=== PATIENT | female | born 1940 | race Caucasian/White ===

== ENCOUNTER 2017-02-07 18:24 | Emergency (ER) | payer OTHER ==
[~2017-02-07] VITALS: Ht 162.6 cm; Wt 85.0 kg
[~2017-02-07 18:24] MED LIST: GABA600T PO; MAXZTAB PO; TRAM50TA PO
[2017-02-07 18:51] VITALS: BP 162/72; PULSE 68; RESP 16; TEMP 97.8; O2SAT 96
[2017-02-07] MEDS ORDERED: MAXZTAB PO (19:38)
[2017-02-07] MEDS ORDERED: GABA600T PO (19:38)
[2017-02-07] MEDS ORDERED: TRAM50TA PO (19:38)
--- NOTE | 2017-02-07 20:19 | PD ---
HPI . Fall Chief Complaint: Fall Time Seen by Provider: 19:21 Travel History International Travel<30 days: No Contact w/Intl Traveler<30days: No Traveled to known affect area: No History of Present Illness HPI 76-year-old female patient presents emergency for evaluation after she tripped at home and fell forward. Patient states she caught herself on her table but twisted her back when it happened. Patient states she has surgical history of her lumbar spine and she is very concerned that she injured it again. Patient is obviously anxious and appears to be in pain. Patient denies any new numbness or tingling to her bilateral lower extremities. Patient denies any saddle numbness or incontinence of urine or stool. Patient has any fevers, chills, malaise, chest pain, nausea, vomiting, shortness breath, lightheadedness. There is no ecchymosis, erythema, obvious deformity noted. Patient does have midline spinal tenderness the thoracic and lumbar region. PFSH Past Medical History Hx Anticoagulant Therapy: No Arthritis: Yes Blood Disorders: No Cancer: No Cardiovascular Problems: No Diabetes: No Diminished Hearing: No Endocrine: No Genitourinary: No Hepatitis: No Hiatal Hernia: No Immune Disorder: No Medical other: Yes (ARTHRITIS, BACK & NECK PAIN;CONSTIPATION;) Musculoskeletal: Yes Neurologic: Yes Psychiatric: No Reproductive: No Respiratory: No Immunizations Current: Yes Thyroid Disease: No Tetanus Vaccination: < 5 Years Influenza Vaccination: No ?: Not Menopausal: Yes Past Surgical History Abdominal Surgery: No Cardiac Surgery: No Ear Surgery: No Endocrine Surgery: No Eye Surgery: No Genitourinary Surgery: No Gynecologic Surgery: No Neurologic Surgery: Yes (LOWER LUMBAR BACK SURGERY X 2) Oral Surgery: Yes (ALL 4 WISDOM TEETH REMOVED) Pacemaker: No Thoracic Surgery: No Other Surgery: Yes (BILAT KNEE REPLACEMENT) Social History Alcohol Use: No Tobacco Use: No Substance Use: No Allergies-Medications (Allergen,Severity, Reaction): Coded Allergies: No Known Allergies (Verified , 02/07/17) Reported Meds & Prescriptions Reported Meds & Active Scripts Active Naproxen Sodium 220 Mg Tab 220 Mg PO BID PRN 3 Days Reported Maxzide-25 (Triamterene-Hydrochlorothiazide) 37.5-25 Mg Tab 1 Tab PO DAILY Gabapentin 600 Mg Tab 600 Mg PO TID Tramadol (Tramadol HCl) 50 Mg Tab 50 Mg PO Q8H PRN Review of Systems Except as stated in HPI: all other systems reviewed are Neg Physical Exam Narrative GENERAL: Well-nourished, well-developed 76-year-old female patient that appears anxious and in pain. No acute respiratory distress noted. Nontoxic-appearing. SKIN: Focused skin assessment warm/dry. HEAD: Normocephalic. Atraumatic. NEUROLOGICAL: Awake and alert. Cranial nerves II through XII intact. Motor and sensory grossly within normal limits. Five out of 5 muscle strength in all muscle groups. Normal speech. EYES: No scleral icterus. No injection or drainage. NECK: Supple, trachea midline. No JVD or lymphadenopathy. CARDIOVASCULAR: Regular rate and rhythm without murmurs, gallops, or rubs. RESPIRATORY: Breath sounds equal bilaterally. No accessory muscle use. GASTROINTESTINAL: Abdomen soft, non-tender, nondistended. MUSCULOSKELETAL: No cyanosis, or edema. BACK: Midline thoracic and lumbar spinal tenderness noted. No obvious deformity , erythema, ecchymosis or cyanosis. No CVA tenderness. Data Data Last Documented VS Vital Signs Date Time Temp Pulse Resp B/P (MAP) Pulse Ox O2 Delivery O2 Flow Rate FiO2 02/07/17 18:51 97.8 68 16 162/72 (102) [address] Thor Spine W/O Contrast (02/07/17 19:30) Ct Lumb Spine W/O Contrast (02/07/17 19:30) Ed Discharge Order (02/07/17 21:49) Ketorolac Inj (Toradol Inj) (02/07/17 22:30) MDM Medical Decision Making Medical Screen Exam Complete: Yes Emergency Medical Condition: Yes Differential Diagnosis Differential diagnosis include but not limited to spinal disc herniation, muscle strain, contusion, back sprain Narrative Course 76-year-old female patient presents emergency department for evaluation of lower back pain. Patient has a lower back surgical history in the lumbar region. Patient tripped while at home earlier and fell forward catching herself on the table but twisted her back and awkward position during episode. Patient has had severe pain ever since. Patient appears anxious and painful. CT of the thoracic and lumbar region ordered and pending. CT of both lumbar and thoracic region showed no acute abnormality. Patient was given the results of the CAT scan. Patient states she would not like a muscle relaxer. And proceeded to explain how her primary care is decreasing her medication for her chronic back pain which is causing her anxiety and stress. Patient states she does not want to follow-up with pain management but her medication. Patient will be given an IM injection of Toradol and discharged home with instructions to follow-up with primary care and/or pain management. When RN went in to D/C patient she was very upset we were not refilling her chronic pain medication. She is on tramadol PRN and she wanted more. She said she might run out and was very upset. Spoke with patient about limitations of emergency depts refilling chronic pain medication that the primary care physician is trying to wean. Patient states she only wants 3 days worth of pain medicine. Patient irritated but accepted a 3 day rx for Naproxen reluctantly. Communication remained respectful but patient not happy about not getting more Tramadol. Last Impressions Thoracic Spine CT 02/07/171929 Signed Impressions: Service Date/Time: Tuesday, February 07, 2017 20:14 - CONCLUSION: No acute bony injury in the thoracic spine Ruddy Caba MD Lumbar Spine CT 02/07/171929 Signed Impressions: Service Date/Time: Tuesday, February 07, 2017 20:14 - CONCLUSION: No acute bony injury in the lumbar spine. Degenerative changes with spondylolisthesis at L4- 5 and moderate disc disease changes at L3-4 and 4-5 levels. Ruddy Caba MD Diagnosis Primary Impression: Back pain Qualified Codes: M54.5 - Low back pain; G89.29 - Other chronic pain Referrals: Primary Care Physician Patient Instructions: Back Pain (ED), General Instructions Additional Instructions: Please return to emergency department if your symptoms return or worsen. Follow up with your primary care provider. Take medications as prescribed. Scripts Naproxen Sodium (Naproxen Sodium) 220 Mg Tab 220 MG PO BID Y for Pain Management for 3 Days, #6 TAB 0 Refills Prov: Chuyita Ogden Stephenie PARIKH 02/07/17 Disposition: 01 DISCHARGE HOME Condition: Stable Alin,Chuyitanicolas PARIKH Feb 07, 2017 20:18
--- NOTE | 2017-02-07 21:22 | RADRPT ---
EXAM DATE/TIME: 02/07/2017 20:14 [facility] COMPARISON: No previous studies available for comparison. INDICATIONS : Trauma. Fall. Back pain. RADIATION DOSE: 30.80 CTDIvol (mGy) ; Combined studies - Thoracic Spine/Lumbar Spine; Patient body habitus MEDICAL HISTORY : None SURGICAL HISTORY : Lumbar surgery. ENCOUNTER: Initial ACUITY: 1 day PAIN SCALE: 7/10 LOCATION: Bilateral upper back TECHNIQUE: Volumetric scanning of the thoracic spine was performed. Multiplanar reconstructions in the sagittal , coronal and oblique axial planes were performed. Using automated exposure control and adjustment o f the mA and/or kV according to patient size, radiation dose was kept as low as reasonably achievable to obtain optimal diagnostic quality images. DICOM format image data is available electronically f or review and comparison. FINDINGS: Thoracic spine alignment is satisfactory. There is no evidence of fracture. No bony canal or foramina l compromise is identified. There is mild degenerative change present throughout with mild disc space narrowing and small primarily ventral endplate osteophytes at all visualized levels. There is no darren dence of paraspinal hematoma. Elsewhere on the exam, note is made of some low density nodules in the thyroid gland, coronary calcif ications, benign-appearing low density nodules in the adrenal glands. CONCLUSION: No acute bony injury in the thoracic spine Ruddy Caba MD on February 07, 2017 at 21:18 Board Certified Radiologist. This report was verified electronically.
--- NOTE | 2017-02-07 21:29 | RADRPT ---
EXAM DATE/TIME: 02/07/2017 20:14 [facility] COMPARISON: CT ABDOMEN & PELVIS W CONTRAST, September 19, 2015, 20:14. INDICATIONS : Trauma. Lower back pain post fall. RADIATION DOSE: 30.80 CTDIvol (mGy) ; Combined studies - Thoracic Spine/Lumbar Spine; Patient bod y habitus MEDICAL HISTORY : None SURGICAL HISTORY : Lumbar surgery. ENCOUNTER: Initial ACUITY: 1 day PAIN SCALE: 7/10 LOCATION: Bilateral lower back TECHNIQUE: Volumetric scanning of the lumbar spine was performed. Multiplanar reconstructions in the sagittal, coronal and oblique axial planes were performed. Using automated exposure control and adjustment of the mA and/or kV according to patient size, radiation dose was kept as low as reasonab ly achievable to obtain optimal diagnostic quality images. DICOM format image data is available saundra ctronically for review and comparison. FINDINGS: There is mild anterolisthesis of L4 relative to L5. There is no definite evidence of lumbar spine fra cture. There is degenerative change present throughout with disc space narrowing at multiple levels, most severely involving L4-5. There is broad dorsal protrusion/extrusion of disc material at this lev el does appear to produce a mild degree of canal compromise. Annular bulge with broad protrusion at L 3-4 is less pronounced. There is severe arthritic involvement of the posterior facet joints of the lo wer lumbar levels. Elsewhere on the exam, note is made of mild mixed density prominence of the left ovary which appears similar to prior CT appearance. No evidence of paraspinal hematoma. CONCLUSION: No acute bony injury in the lumbar spine. Degenerative changes with spondylolisthesis at L4-5 and moderate disc disease changes at L3-4 and 4-5 levels. Ruddy Caba MD on February 07, 2017 at 21:21 Board Certified Radiologist. This report was verified electronically.
[2017-02-07] MEDS ORDERED: MEDI220T PO (22:20)
[2017-02-07] MEDS ORDERED: KETOROLAC TROMETHAMINE 60 MG/2 ML (IM) VIAL IM ONE (22:30)
== END 2017-02-07 22:30 | disposition home or self-care (01) ==
LOC: PHEFT 18:24
DX: M54.5 Low back pain (principal); M47.9 Spondylosis, unspecified
CPT/HCPCS: 72128; 72131; 96372; 99285; J1885